=== PATIENT | male | born 1965 | race Caucasian/White ===

== ENCOUNTER 2018-11-04 17:28 | Observation (INO) ==
--- NOTE | 2018-11-04 17:33 | Emergency Department Note ---
Disposition Clinical Impression: Generalized weakness Diarrhea Qualifiers: Diarrhea type: unspecified type Qualified Code(s): R19.7 - Diarrhea, unspecified Disposition: Admitted As Inpatient Condition: Fair Referrals: Latosha Devlin CNP [Primary Care Provider] - Forms: ED Satisfaction Letter Time of Disposition: 18:20 Nausea/Vomiting/Diarrhea HPI - General Chief complaint: ED Dizziness Stated complaint: diarrhea, dizzy, lightheaded Time Seen by Provider: 11/04/18 17:30 Source: patient, family Mode of arrival: private vehicle Limitations: no limitations Nursing Notes Reviewed: Yes Vital Signs Reviewed: Yes - History of Present Illness HPI Narrative: Patient states he has a feeling of generalized weakness without dizziness with trying to stand or move about. He is concerned because she has a history of radial multiple falls over the last month and a half. He fell on August 30 fracturing his left elbow 40 is still in a brace. He is been through [facility] and out of [facility]. He last 4 days has had frequent, copious, watery diarrhea. This is been without blood or mucus. He has not had nausea or vomiting. He has had some decrease in oral intake. He denies fevers or chills. Denies any recent fall but does have the concern of falling. He reports abdominal growling but no pain. He denies any new cough or shortness of breath. He denies chest pain or flank pain. He denies any ill exposures, recent antibiotics or food borne illness concerns. He has had an appendectomy denies other ongoing abdominal problems or procedures. He has tried Imodium without relief. Pt Subjective Complaint: diarrhea Onset (ago): day(s) (4) Description of Diarrhea: water Associated Abdominal Pain: No Severity: none Quality: cramping ("Abdomen growling") Consistency: intermittent Improves with: nothing Worsens with: eating, bowel movement Associated symptoms: Reports: loss of appetite, malaise, weakness. Denies: myalgias, chest pain, cough, diaphoresis, fever/chills, headaches, nausea/vo miting, rash, dysuria, shortness of breath, syncope - Related Data Home Medications Medication Instructions Recorded Confirmed SitaGLIPtin [Januvia] 25 mg PO DAILY 02/04/17 11/04/18 Metformin HCl [Glucophage] 1,000 mg PO BID 09/01/18 11/04/18 Finasteride [Proscar] 5 mg PO DAILY 10/17/18 11/04/18 Glimepiride [Amaryl] 1 mg PO DAILY 10/17/18 11/04/18 Tamsulosin [Flomax] 0.4 mg PO DAILY 10/17/18 11/04/18 Tramadol HCl [Ultram] 50 mg PO TID PRN 10/17/18 11/04/18 Previous Rx's Medication Instructions Recorded Metoprolol [Lopressor] 25 mg PO BID #1 tablet 09/02/18 Allergies Allergy/AdvReac Type Severity Reaction Status Date / Time codeine Allergy Swelling Verified 09/01/18 11:11 of Lip/Tongue/Throat hydrocodone [From Vicodin] Allergy Swelling Verified 09/01/18 11:11 of Lip/Tongue/Throat oxycodone [From Percocet] Allergy Swelling Verified 09/01/18 11:11 of Lip/Tongue/Throat acetaminophen [From Tylenol] AdvReac See Verified 09/01/18 11:11 Comments All systems ED: reviewed and negative except as stated. Past Medical History - Past Medical History Attestation: Yes The following information was validated with the patient. Source: patient, old records reviewed, obtained from family, nursing notes reviewed Medical history: Reports: diabetes, hypertension Surgical history: Reports: appendectomy, orthopedic, other Psychiatric history: Reports: anxiety - Social History Smoking Status: Never smoker Smokeless Tobacco Status: No Alcohol use: Reports: none Drug use: Reports: none Physical Exam - General Limitations: no limitations General appearance: alert, in no apparent distress - Head Head exam: atraumatic, normocephalic, normal inspection - Eye Eye exam: Present: normal appearance, PERRL, EOMI. Absent: scleral icterus, conjunctival injection - ENT ENT exam: normal exam, normal oropharynx, mucous membranes moist - Neck Neck exam: Present: normal inspection, full ROM, trachea midline - Chest Chest inspection: Present: normal inspection, symmetric chest wall rise - Respiratory Respiratory exam: Present: normal lung sounds bilaterally. Absent: respiratory distress, wheezes, prolonged expiratory phase - Cardiovascular Cardiovascular exam: Present: regular rate, normal rhythm, normal heart sounds - Abdominal Exam Abdominal exam: Present: soft, hyperactive bowel sounds. Absent: tenderness, distention, guarding, rebound, rigidity, mass, pulsatile mass, hernia - Extremities Exam Extremities exam: Present: normal inspection, full ROM, normal capillary refill, other (Patient has an articulated brace on the left arm.). Absent: tenderness, pedal edema - Expanded Lower Extremity Exam Neurovascular/Tendon exam: Present: normal capillary refill. Absent: motor deficit, sensory deficit, tendon deficit Gait: not tested/not observed - Neurological Exam Neurological exam: Present: alert, oriented X3 - Psychiatric Psychiatric exam: Present: normal affect, normal mood. Absent: agitated, anxious - Skin Skin exam: Present: warm, dry, intact, pallor. Absent: normal color, diaphoresis Course Course Narrative: Patient was evaluated immediately upon arrival. Given his weakness and persistent diarrhea I advised we will start some IV fluids and check some baseline lab work. If he passes stool we will need to check it for stool pathogens and C. difficile. He understands he will likely need observation for continued hydration given his weakness and risk of fall. 1820: Care has been discussed with Dr. Ram. Verbal orders have been obtained for his observation and continued hydration. Vital Signs Temperature 98 F 11/04/18 17:35 Pulse Rate 80 11/04/18 17:35 Respiratory Rate 16 11/04/18 17:35 Blood Pressure 101/78 11/04/18 17:35 O2 Sat by Pulse Oximetry 97 11/04/18 17:35 Temperature 98 F 11/04/18 17:35 Pulse Rate 80 11/04/18 17:35 Respiratory Rate 16 11/04/18 17:35 Blood Pressure 101/78 11/04/18 17:35 O2 Sat by Pulse Oximetry 97 11/04/18 17:35 Oxygen Delivery Oxygen Delivery Room Air Nausea/Vomiting/Diarrhea - Differential Diagnosis Likely: traveler's diarrhea, food poisoning, gastroenteritis, clostridium difficile infection - Lab Data Lab results reviewed: Yes I reviewed the patient's lab results. Result diagrams: 11/04/18 17:43 11/04/18 17:43 Lab Results 11/04/18 11/04/18 Range/Units 17:43 17:43 WBC 11.4 H (4.3-11.1) K/mcL RBC 4.94 (4.19-5.50) M/mcL Hgb 12.7 L (12.9-16.9) g/dL Hct 39.7 (37.5-50.1) % MCV 80.4 L (83.0-100.0) fL MCH 25.7 L (28.0-33.3) pg MCHC 32.0 (31.6-35.5) g/dL RDW 15.3 H (11.5-14.5) % Plt Count 174 (140-400) K/mcL MPV 9.8 (9.4-12.4) fL Immature Gran % 0.3 (0-4) % Seg Neutrophils % 70.6 % Lymphocytes % 16.1 % Monocytes % 8.2 % Eosinophils % 4.1 % Basophils % 0.7 % Neutrophils # 8.1 (1.6-8.9) K/mcL Lymphocytes # 1.8 (0.6-4.6) K/mcL Monocytes # 0.9 (0.0-1.3) K/mcL Eosinophils # 0.5 (0.0-0.6) K/mcL Basophils # 0.1 (0.0-0.2) K/mcL Sodium 138 (136-145) mEq/L Potassium 4.1 (3.5-5.1) mEq/L Chloride 107 (98-107) mEq/L Carbon Dioxide 23 (23-29) mEq/L BUN 20 (6-20) mg/dL Creatinine 1.34 H (0.70-1.30) mg/dL Est GFR ( Amer) > 60 (> 60) Est GFR (Non-Af Amer) 56 L (> 60) BUN/Creatinine Ratio 15 (6-26) Glucose 90 (70-105) mg/dL Calculated Osmolality 288 (280-300) Calcium 8.9 (8.6-10.3) mg/dL Total Bilirubin 1.2 H (0.3-1.0) mg/dL Direct Bilirubin 0.2 (0.0-0.2) mg/dL Indirect Bilirubin 1.0 (0.0-1.2) mg/dL AST 15 (13-39) Units/L ALT 15 (7-52) Units/L Alkaline Phosphatase 108 H (34-104) Units/L Serum Total Protein 7.2 (6.4-8.9) g/dL Albumin 3.7 (3.5-5.7) g/dL Globulin 3.5 (2.4-3.5) g/dL Albumin/Globulin Ratio 1.1 (1.1-2.2) Amylase 43 (29-103) Units/L Lipase 44 (11-82) Units/L
[2018-11-04] MEDS ORDERED: 0.9 % Sodium Chloride 1,000 ML IVC ONE (17:34)
[2018-11-04 17:49] LABS: Basophils # 0.1 K/mcL (0.0-0.2); Basophils % 0.7 %; Eosinophils # 0.5 K/mcL (0.0-0.6); Eosinophils % 4.1 %; Hematocrit 39.7 % (37.5-50.1); Hemoglobin 12.7 g/dL (12.9-16.9); Immature Granulocytes % 0.3 % (0-4); Lymphocytes # 1.8 K/mcL (0.6-4.6); Lymphocytes % 16.1 %; Mean Corpuscular Hemoglobin 25.7 pg (28.0-33.3); Mean Corpuscular Volume 80.4 fL (83.0-100.0); Mean Platelet Volume 9.8 fL (9.4-12.4); Monocytes # 0.9 K/mcL (0.0-1.3); Monocytes % 8.2 %; Neutrophils # 8.1 K/mcL (1.6-8.9); Platelet Count 174 K/mcL (140-400); Red Blood Count 4.94 M/mcL (4.19-5.50); Red Cell Distribution Width 15.3 % (11.5-14.5); Segmented Neutrophils % 70.6 %; White Blood Count 11.4 K/mcL (4.3-11.1)
[2018-11-04 18:05] LABS: Alanine Aminotransferase 15 Units/L (7-52); Albumin 3.7 g/dL (3.5-5.7); Albumin/Globulin Ratio 1.1 (1.1-2.2); Alkaline Phosphatase 108 Units/L (34-104); Amylase 43 Units/L (29-103); Aspartate Amino Transferase 15 Units/L (13-39); BUN/Creatinine Ratio 15 (6-26); Bilirubin,Direct 0.2 mg/dL (0.0-0.2); Bilirubin,Total 1.2 mg/dL (0.3-1.0); Blood Urea Nitrogen 20 mg/dL (6-20); Calcium 8.9 mg/dL (8.6-10.3); Carbon Dioxide 23 mEq/L (23-29); Chloride 107 mEq/L (98-107); Globulin 3.5 g/dL (2.4-3.5); Glucose 90 mg/dL (70-105); Lipase 44 Units/L (11-82); Osmolality,Calculated 288 (280-300); Potassium 4.1 mEq/L (3.5-5.1); Sodium 138 mEq/L (136-145); Total Protein 7.2 g/dL (6.4-8.9); eGFR For African Americans > 60 (> 60); eGFR For Non-African Americans 56 (> 60)
[2018-11-04] MEDS ORDERED: traMADol 50 MG TABLET PO PRN (20:54)
[2018-11-04] MEDS ORDERED: MOM Conc 10 ML UD.LIQ PO PRN (20:54)
[2018-11-04] MEDS ORDERED: *HR* Dextrose 50 % in Water (Syg) 50 ML SYRINGE IVP PRN (20:54)
[2018-11-04] MEDS ORDERED: Ondansetron ODT 4 MG TAB.RAPDIS SL PRN (20:54)
[2018-11-04] MEDS ORDERED: Naloxone 0.4 MG/ML INJ IVP PRN (20:54)
[2018-11-04] MEDS ORDERED: D5% in Water 1,000 ML IVC PRN (20:54)
[2018-11-04] MEDS ORDERED: Dextrose Gel 15 GM/37.5 ML TUBE PO PRN ×2 (20:54)
[2018-11-04] MEDS ORDERED: Mag Hydrox/Al Hydrox/Simeth 30 ML UDC PO PRN (20:54)
[2018-11-04] MEDS: 0.9 % Sodium Chloride 1,000 ML IVC SCH (21:47)
[2018-11-04] MEDS: *HR* Metformin 500 MG TABLET PO SCH (21:50)
[2018-11-05] MEDS: 0.9 % Sodium Chloride 1,000 ML IVC SCH (05:43)
[2018-11-05] MEDS: Insulin LISPRO 300 UNITS/3 ML VIAL SQ SCH ×3 (07:35→16:26)
[2018-11-05] MEDS: *HR* Metformin 500 MG TABLET PO SCH ×2 (07:37→16:30)
[2018-11-05] MEDS: Finasteride 5 MG TABLET PO SCH (07:38)
[2018-11-05] MEDS: *HR* SitaGLIPtin 25 MG TABLET PO SCH (07:38)
[2018-11-05] MEDS ORDERED: *HR* Glimepiride 2 MG TABLET PO SCH (08:00)
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
[2018-11-05 12:42] LABS: Adenovirus F 40/41 PCR Not detected (Not detect); Astrovirus PCR Not detected (Not detect); C.difficile Toxin A/B Gene PCR Not detected (Not detect); Campylobacter by PCR Not detected (Not detect); Cryptosporidium by PCR Not detected (Not detect); Cyclospora cayetanensis PCR Not detected (Not detect); E. coli O157 by PCR Not detected (Not detect); Entamoeba histolytica PCR Not detected (Not detect); Enteroaggregative E.coli(EAEC) Not detected (Not detect); Enteropathogenic E.coli(EPEC) Not detected (Not detect); Enterotoxigenic E.coli (ETEC) Not detected (Not detect); Giardia lamblia PCR Not detected (Not detect); Norovirus GI/GII PCR Not detected (Not detect); Plesiomonas shigelloides PCR Not detected (Not detect); Salmonella PCR Not detected (Not detect); Shig/EnteroinvasiveE coli EIEC Not detected (Not detect); Shigalike tox-prod E coli STEC Not detected (Not detect); Vibrio PCR Not detected (Not detect); Vibrio cholerae PCR Not detected (Not detect); Yersinia enterocolitica PCR Not detected (Not detect)
[2018-11-05 12:43] LABS: Rotavirus A PCR Not detected (Not detect); Sapovirus PCR Not detected (Not detect)
[2018-11-05] MEDS: 0.45 % Sodium Chloride w/KCl 20 MEQ/1,000 ML MLS IVC SCH (13:51)
[2018-11-06] MEDS: 0.45 % Sodium Chloride w/KCl 20 MEQ/1,000 ML MLS IVC SCH ×2 (02:32→14:10)
[2018-11-06] MEDS: *HR* Enoxaparin 40 MG/0.4 ML SYRINGE SQ SCH (04:49)
[2018-11-06 07:04] LABS: Basophils # 0.1 K/mcL (0.0-0.2); Basophils % 0.8 %; Eosinophils # 0.3 K/mcL (0.0-0.6); Eosinophils % 4.7 %; Hematocrit 36.2 % (37.5-50.1); Hemoglobin 11.6 g/dL (12.9-16.9); Immature Granulocytes % 0.4 % (0-4); Lymphocytes # 1.9 K/mcL (0.6-4.6); Lymphocytes % 25.7 %; Mean Corpuscular Hemoglobin 25.8 pg (28.0-33.3); Mean Corpuscular Volume 80.6 fL (83.0-100.0); Mean Platelet Volume 10.2 fL (9.4-12.4); Monocytes # 0.7 K/mcL (0.0-1.3); Monocytes % 9.2 %; Neutrophils # 4.3 K/mcL (1.6-8.9); Platelet Count 136 K/mcL (140-400); Red Blood Count 4.49 M/mcL (4.19-5.50); Red Cell Distribution Width 14.9 % (11.5-14.5); Segmented Neutrophils % 59.2 %; White Blood Count 7.3 K/mcL (4.3-11.1)
[2018-11-06 07:41] LABS: BUN/Creatinine Ratio 14 (6-26); Blood Urea Nitrogen 14 mg/dL (6-20); Calcium 8.6 mg/dL (8.6-10.3); Carbon Dioxide 23 mEq/L (23-29); Chloride 110 mEq/L (98-107); Glucose 71 mg/dL (70-105); Magnesium 1.6 mg/dL (1.6-2.6); Osmolality,Calculated 289 (280-300); Potassium 3.6 mEq/L (3.5-5.1); Sodium 140 mEq/L (136-145); eGFR For African Americans > 60 (> 60); eGFR For Non-African Americans > 60 (> 60)
[2018-11-06 08:49] LABS: % Iron Saturation 9 % (20-55); Iron 34 mcg/dL (65-175); Transferrin 261 mg/dL (203-362)
[2018-11-06 09:07] LABS: Ferritin 45 ng/mL (20-250)
[2018-11-06 09:08] LABS: Estimated Average Glucose 114 mg/dl
[2018-11-06 09:19] LABS: Folate > 22.3 ng/mL (3.0-16.0); Vitamin B12 373 pg/mL (250-1100)
[2018-11-06] MEDS: Finasteride 5 MG TABLET PO SCH (10:04)
[2018-11-06] MEDS: Insulin LISPRO 300 UNITS/3 ML VIAL SQ SCH ×3 (10:05→16:16)
[2018-11-06] MEDS: *HR* SitaGLIPtin 25 MG TABLET PO SCH (10:05)
--- NOTE | 2018-11-06 15:47 | Internal Med Progress Note ---
Date of Encounter: 11/06/18 Time of Encounter: 15:35 - Assessment and plan (1) Diarrhea Current Visit: Yes Status: Acute Assessment and plan: November 06. Awaiting stool study results. Continue IV fluids and symptomatically treatment. Qualifiers: Diarrhea type: unspecified type Qualified Code(s): R19.7 - Diarrhea, unspecified (2) Multiple falls Current Visit: Yes Status: Acute Assessment and plan: November 06. PT and OT intervention has been started. Orthostatic vital signs not recorded. (3) Microcytic anemia Current Visit: Yes Status: Acute Assessment and plan: November 06. Anemia testing showed iron 34, transferrin saturation 9%, transferrin 261, ferritin 45, B12 373, and folate > 22.3. Hemoglobin has decreased to 11.6. Start ferrous sulfate with ascorbic acid in a.m. (4) Acute renal insufficiency Current Visit: Yes Status: Acute Assessment and plan: November 06. Resolved. BUN and creatinine are 14 and 0.97 respectively with estimated GFR> 60. (5) Osteomyelitis Current Visit: No Status: Acute Assessment and plan: November 06. MRI showed suspicion for osteomyelitis in the distal phalanx of the right hallux with superficial fluid collection possibly representing a small abscess. This was reported to Dr. Machado at [facility] podiatry. He requested foot x- ray be done for further evaluation. Qualifiers: Osteomyelitis type: unspecified type Osteomyelitis location: foot Laterality: right Qualified Code(s): M86.9 - Osteomyelitis, unspecified (6) Hypertension Current Visit: No Status: Chronic Assessment and plan: November 06. Continue Lopressor. Qualifiers: Hypertension type: essential hypertension Qualified Code(s): I10 - Essential (primary) hypertension (7) Diabetes Current Visit: No Status: Chronic Assessment and plan: November 06. Hemoglobin A1c 5.6%. Remain off Amaryl. Discontinue Januvia and continue monitoring Accu-Cheks. 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 He has no new complaints. He reports he still has diarrhea. - Constitutional Vitals: Temp Pulse Resp BP Pulse Ox 98.3 F 83 17 147/90 97 11/06/18 14:38 11/06/18 14:38 11/06/18 14:38 11/06/18 14:38 11/06/18 14:38 Exam: He is resting comfortably in bed and appears in no acute distress. His affect is bright and cheerful. Extremities show no edema. Reviewed his medications and lab results. Internal Medicine: Result - Labs CBC & Chem 7: 11/06/18 06:14 11/06/18 06:14 Labs: Short CBC 11/06/18 Range/Units 06:14 WBC 7.3 (4.3-11.1) K/mcL Hgb 11.6 L (12.9-16.9) g/dL Hct 36.2 L (37.5-50.1) % Plt Count 136 L (140-400) K/mcL Neutrophils # 4.3 (1.6-8.9) K/mcL BMP 11/06/18 06:14 Sodium 140 Potassium 3.6 Chloride 110 H Carbon Dioxide 23 BUN 14 Creatinine 0.97 Glucose 71 Calcium 8.6 - Impressions Impressions Foot X-Ray 11/06/18 15:00 IMPRESSION: Soft tissue swelling about the great toe and 1st MTP joint. No bony destruction. D/ / 11/06/2018 15:29:36 Nik Leach MD / segundo Interpreting Provider: Nik Leach MD Consult Discharge Plan - Plan Referrals: Latosha Devlin CNP [Primary Care Provider] - 1 week
[2018-11-06] MEDS: *HR* Metformin 500 MG TABLET PO SCH (17:10)
[2018-11-07] MEDS: 0.45 % Sodium Chloride w/KCl 20 MEQ/1,000 ML MLS IVC SCH ×2 (02:03→15:59)
[2018-11-07 05:43] LABS: Basophils # 0.1 K/mcL (0.0-0.2); Basophils % 1.1 %; Eosinophils # 0.3 K/mcL (0.0-0.6); Eosinophils % 4.7 %; Hematocrit 35.2 % (37.5-50.1); Hemoglobin 11.3 g/dL (12.9-16.9); Immature Granulocytes % 0.3 % (0-4); Lymphocytes # 2.1 K/mcL (0.6-4.6); Lymphocytes % 29.6 %; Mean Corpuscular HGB Conc 32.1 g/dL (31.6-35.5); Mean Corpuscular Hemoglobin 25.7 pg (28.0-33.3); Mean Corpuscular Volume 80.2 fL (83.0-100.0); Mean Platelet Volume 10.8 fL (9.4-12.4); Monocytes # 0.7 K/mcL (0.0-1.3); Monocytes % 9.4 %; Neutrophils # 3.9 K/mcL (1.6-8.9); Platelet Count 132 K/mcL (140-400); Red Blood Count 4.39 M/mcL (4.19-5.50); Red Cell Distribution Width 14.9 % (11.5-14.5); Segmented Neutrophils % 54.9 %; White Blood Count 7.2 K/mcL (4.3-11.1)
[2018-11-07] MEDS: *HR* Enoxaparin 40 MG/0.4 ML SYRINGE SQ SCH (05:46)
[2018-11-07] MEDS ORDERED: Ascorbic Acid 500 MG TABLET PO SCH (06:30)
[2018-11-07 06:34] LABS: BUN/Creatinine Ratio 13 (6-26); Blood Urea Nitrogen 13 mg/dL (6-20); Calcium 8.8 mg/dL (8.6-10.3); Carbon Dioxide 24 mEq/L (23-29); Chloride 110 mEq/L (98-107); Glucose 89 mg/dL (70-105); Osmolality,Calculated 294 (280-300); Potassium 3.8 mEq/L (3.5-5.1); Sodium 142 mEq/L (136-145); eGFR For African Americans > 60 (> 60); eGFR For Non-African Americans > 60 (> 60)
[2018-11-07] MEDS: Insulin LISPRO 300 UNITS/3 ML VIAL SQ SCH ×3 (07:27→15:57)
[2018-11-07] MEDS: Finasteride 5 MG TABLET PO SCH (08:30)
[2018-11-07 12:28] VITALS: BP 144/90
--- NOTE | 2018-11-07 14:20 | Internal Med Progress Note ---
Date of Encounter: 11/07/18 Time of Encounter: 14:12 - Assessment and plan (1) Diarrhea Current Visit: Yes Status: Acute Assessment and plan: November 06. Awaiting stool study results. Continue IV fluids and symptomatically treatment. November 07. GI panel negative. Oral intake adequate. Discontinue IV fluids. Qualifiers: Diarrhea type: unspecified type Qualified Code(s): R19.7 - Diarrhea, unspecified (2) Multiple falls Current Visit: Yes Status: Acute Assessment and plan: November 06. PT and OT intervention has been started. Orthostatic vital signs not recorded. (3) Microcytic anemia Current Visit: Yes Status: Acute Assessment and plan: November 06. Anemia testing showed iron 34, transferrin saturation 9%, transferrin 261, ferritin 45, B12 373, and folate > 22.3. Hemoglobin has decreased to 11.6. Start ferrous sulfate with ascorbic acid in a.m. November 07. Hemoglobin minimally decreased to 11.3. Continue monitor. (4) Acute renal insufficiency Current Visit: Yes Status: Acute Assessment and plan: November 06. Resolved. BUN and creatinine are 14 and 0.97 respectively with estimated GFR> 60. (5) Osteomyelitis Current Visit: No Status: Acute Assessment and plan: November 06. MRI showed suspicion for osteomyelitis in the distal phalanx of the right hallux with superficial fluid collection possibly representing a small abscess. This was reported to Dr. Machado at [facility] [place] podiatry. He requested foot x- ray be done for further evaluation. November 07. Foot x-ray report noted. Nursing has contacted Dr. Machado who stated he will see the patient in 3-4 days and aspirate the first MTP joint. He said he does not feel IV antibiotics were necessary at this time but oral antibiotics would be reasonable. ESR and CRP will be done in a.m. per his recommendation. Qualifiers: Osteomyelitis type: unspecified type Osteomyelitis location: foot Laterality: right Qualified Code(s): M86.9 - Osteomyelitis, unspecified (6) Hypertension Current Visit: No Status: Chronic Assessment and plan: November 06. Continue Lopressor. Qualifiers: Hypertension type: essential hypertension Qualified Code(s): I10 - Essential (primary) hypertension (7) Diabetes Current Visit: No Status: Chronic Assessment and plan: November 06. Hemoglobin A1c 5.6%. Remain off Amaryl. Discontinue Januvia and continue monitoring Accu-Cheks. November 07. Blood sugars stable. Continue present Rx. Qualifiers: Diabetes mellitus type: type 2 Diabetes mellitus fdc insulin use: without fdc use Diabetes mellitus complication status: with skin complications Diabetes mellitus complication detail: with foot ulcer Qualified Code(s): E11.621 - Type 2 diabetes mellitus with foot ulcer; L97.509 - Non-pressure chronic ulcer of other part of unspecified foot with unspecified severity (8) Humeral fracture Current Visit: No Status: Acute Assessment and plan: November 07. Therapy feels he would benefit from hemiwalker or walker rather than use of quad cane. Qualifiers: Encounter type: subsequent encounter Humerus Location: supracondylar fracture without intercondylar fracture Fracture type: closed Fracture morphology: comminuted Fracture alignment: displaced Laterality: left Fracture healing: with routine healing Qualified Code(s): S42.422D - Displaced comminuted supracondylar fracture without intercondylar fracture of left humerus, subsequent encounter for fracture with routine healing - Subjective Interval history: November 06. He has no new complaints. He reports he still has diarrhea. November 07. He has no new complaints and states diarrhea has resolved. - Constitutional Vitals: Temp Pulse Resp BP Pulse Ox 98.4 F 83 20 144/90 96 11/07/18 12:27 11/07/18 12:27 11/07/18 12:27 11/07/18 12:27 11/07/18 12:27 Exam: He is resting comfortably in bed and appears in no acute distress. His affect is overall cheerful. I reviewed his medications, lab results, and x-ray report. Internal Medicine: Result - Labs CBC & Chem 7: 11/07/18 04:59 11/07/18 04:59 Labs: Short CBC 11/07/18 Range/Units 04:59 WBC 7.2 (4.3-11.1) K/mcL Hgb 11.3 L (12.9-16.9) g/dL Hct 35.2 L (37.5-50.1) % Plt Count 132 L (140-400) K/mcL Neutrophils # 3.9 (1.6-8.9) K/mcL BMP 11/07/18 04:59 Sodium 142 Potassium 3.8 Chloride 110 H Carbon Dioxide 24 BUN 13 Creatinine 1.02 Glucose 89 Calcium 8.8 - Impressions Impressions Foot X-Ray 11/06/18 15:00 IMPRESSION: Soft tissue swelling about the great toe and 1st MTP joint. No bony destruction. D/ / 11/06/2018 15:29:36 Nik Leach MD / segundo Interpreting Provider: Nik Leach MD Consult Discharge Plan - Plan Referrals: Latosha Devlin CNP [Primary Care Provider] - 1 week
[2018-11-07] MEDS: *HR* Metformin 500 MG TABLET PO SCH (17:10)
--- NOTE | 2018-11-07 17:49 | Discharge Summary ---
Date of Encounter: 11/07/18 Time of Encounter: 17:45 - Discharge Diagnosis (1) Diarrhea Priority: Primary Status: Resolved Qualifiers: Diarrhea type: unspecified type Qualified Code(s): R19.7 - Diarrhea, unspecified (2) Multiple falls Priority: Secondary Status: Acute (3) Microcytic anemia Priority: Secondary Status: Acute (4) Acute renal insufficiency Priority: Secondary Status: Resolved (5) Osteomyelitis Priority: Secondary Status: Chronic Qualifiers: Osteomyelitis type: unspecified type Osteomyelitis location: foot Laterality: right Qualified Code(s): M86.9 - Osteomyelitis, unspecified (6) Hypertension Priority: Secondary Status: Chronic Qualifiers: Hypertension type: essential hypertension Qualified Code(s): I10 - Essential (primary) hypertension (7) Diabetes Priority: Secondary Status: Chronic Qualifiers: Diabetes mellitus type: type 2 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 [facility] use Diabetes mellitus complication status: with skin complications Diabetes mellitus complication detail: with foot ulcer Qualified Code(s): E11.621 - Type 2 diabetes mellitus with foot ulcer; L97.509 - Non-pressure chronic ulcer of other part of unspecified foot with unspecified severity (8) Humeral fracture Priority: Secondary Status: Acute Qualifiers: Encounter type: subsequent encounter Humerus Location: supracondylar fracture without intercondylar fracture Fracture type: closed Fracture morphology: comminuted Fracture alignment: displaced Laterality: left Fracture healing: with routine healing Qualified Code(s): S42.422D - Displaced comminuted supracondylar fracture without intercondylar fracture of left humerus, subsequent encounter for fracture with routine healing Hospital course: Mr. Salomon is a 53 year old male who came to emergency room stating he had 5-6 day history of nonbloody diarrhea at home. He denies nausea vomiting fevers chills or abdominal pain. He reports his stools were "brown water". He had pr ogressive weakness with orthostatic symptoms upon arising. He reports he has had 4-5 falls at home since being discharged from a local SNF approximately 6 weeks ago. He was evaluated in emergency room and was found to have microcytic anemia, acute renal insufficiency, and slight leukocytosis. He was admitted to [facility] for ongoing care needs. Initial orders were written by the emergency room physician. I saw him on November 05 and performed the history and physical. He was given IV fluids. Stool GI panel returned negative. Etiology of diarrhea was not determined with certainty. He reported his diarrhea had resolved by day of discharge to swing bed. Physical therapy and occupational therapy evaluations with ongoing intervention were ordered. Therapy will be continued in swing bed. Anemia testing showed iron 34, transferrin saturation 9%, transferrin 261, ferritin 45, B12 373, and folate > 22.3. He was started on ferrous sulfate with ascorbic acid. BUN and creatinine improved to 13 and 1.02 respectively by day of discharge with estimated GFR > 60. MRI showed suspicion for osteomyelitis in the distal phalanx of the right hallux with superficial fluid collection possibly representing a small abscess. This was reported to Dr. Machado at [facility] podiatry. He requested foot x-ray be done for further evaluation. Dr. Machado reviewed the MRI and x-ray and stated he will see the patient in 3-4 days and aspirate the first MTP joint. He said he does not feel IV antibiotics were necessary at this time but oral antibiotics would be reasonable. ESR and CRP will be done in a.m. per his recommendation. Patient will be started on oral Septra DS twice a day with lactobacillus. Hemoglobin A1c returned satisfactory 5.6%. Amaryl and Januvia were discontinued. He remained on metformin 1000 mg daily with satisfactory blood sugars. He felt he needed additional therapy prior to returning to independent living at home. He was discharged to swing bed November 07 for ongoing care needs. - Time Spent with Patient Total time spent providing and/or coordinating discharge services: - Discharge Medications Prescriptions: New metFORMIN [Glucophage] 1,000 mg PO QPM tablet Insulin LISPRO [HumaLOG] 0 units SQ TIDAC vial Ferrous Sulfate 325 mg PO 0630 tablet Enoxaparin [Lovenox] 40 mg SQ 0600 syringe Ascorbic Acid [Vitamin C] 500 mg PO 0630 tablet Dextrose 50 % in Water (Syg) [Dextrose 50% (Syg)] 25 ml IVP AD PRN syringe PRN Reason: Hypoglycemia Dextrose Gel [Gluctose] 30 gm PO ONCE PRN tube PRN Reason: Hypoglycemia Dextrose Gel [Gluctose] 15 gm PO ONCE PRN tube PRN Reason: Hypoglycemia Sulfamethoxazole/Trimeth DS [Bactrim DS] 1 each PO BID 4 Days tablet Lactobacillus [Culturelle] 1 each PO BID 4 Days cap.sprink Continued SitaGLIPtin [Januvia] 25 mg PO DAILY Metoprolol [Lopressor] 25 mg PO BID #1 tablet Finasteride [Proscar] 5 mg PO DAILY Tramadol HCl [Ultram] 50 mg PO TID PRN PRN Reason: Pain Tamsulosin [Flomax] 0.4 mg PO DAILY Discontinued Metformin HCl [Glucophage] 1,000 mg PO BID Glimepiride [Amaryl] 1 mg PO DAILY Home Medications: SitaGLIPtin [Januvia] 25 mg PO DAILY 02/04/17 [History] Metoprolol [Lopressor] 25 mg PO BID #1 tablet 09/02/18 [Rx] Finasteride [Proscar] 5 mg PO DAILY 10/17/18 [History] Tamsulosin [Flomax] 0.4 mg PO DAILY 10/17/18 [History] Tramadol HCl [Ultram] 50 mg PO TID PRN 10/17/18 [History] Ascorbic Acid [Vitamin C] 500 mg PO 0630 tablet 11/07/18 [Rx] Dextrose 50 % in Water (Syg) [Dextrose 50% (Syg)] 25 ml IVP AD PRN syringe 11/07/18 [Rx] Dextrose Gel [Gluctose] 15 gm PO ONCE PRN tube 11/07/18 [Rx] Dextrose Gel [Gluctose] 30 gm PO ONCE PRN tube 11/07/18 [Rx] Enoxaparin [Lovenox] 40 mg SQ 0600 syringe 11/07/18 [Rx] Ferrous Sulfate 325 mg PO 0630 tablet 11/07/18 [Rx] Insulin LISPRO [HumaLOG] 0 units SQ TIDAC vial 11/07/18 [Rx] Lactobacillus [Culturelle] 1 each PO BID 4 Days cap.sprink 11/07/18 [Rx] Sulfamethoxazole/Trimeth DS [Bactrim DS] 1 each PO BID 4 Days tablet 11/07/18 [Rx] metFORMIN [Glucophage] 1,000 mg PO QPM tablet 11/07/18 [Rx] Allergies/Adverse Reactions: Allergy/AdvReac Type Severity Reaction Status Date / Time codeine Allergy Swelling Verified 09/01/18 11:11 of Lip/Tongue/Throat hydrocodone [From Vicodin] Allergy Swelling Verified 09/01/18 11:11 of Lip/Tongue/Throat oxycodone [From Percocet] Allergy Swelling Verified 09/01/18 11:11 of Lip/Tongue/Throat acetaminophen [From Tylenol] AdvReac See Verified 09/01/18 11:11 Comments Date of admission: 11/04/18 18:39 Primary care physician: Latosha Devlin Consults: 11/04/18 20:52 Consult to Nutrition [CONS] Routine Comment: Consulting Provider: NUTRITION Reason for Dietary Consult: MST Score 11/05/18 11:20 Consult to Occupational Therapy [CONS] Routine Comment: Evaluate, develop and implement POC Reason for Consult: Weakness Does patient have active BEDREST order?: No Is patient medically & hemodynamically stable?: Yes Patient assessed for mobility or mobilized this visit?: Yes Consult to Physical Therapy [CONS] Routine Comment: Evaluate, develop and implement POC Reason for Consult: Weakness Does patient have active BEDREST order?: No Is patient medically & hemodynamically stable?: Yes Patient assessed for mobility or mobilized this visit?: Yes - Constitutional Vitals: Temp Pulse Resp BP Pulse Ox 98.4 F 83 20 144/90 96 11/07/18 12:27 11/07/18 12:27 11/07/18 12:27 11/07/18 12:27 11/07/18 12:27 - Patient Status Disposition: Transfer Hospital Swing Bed Condition: Fair - Discharge Instructions - Diet and Activity Activity: as per physical therapy Diet: diabetic diet
== END 2018-11-07 18:10 | disposition other institution (70) ==
LOC: EMEROOPIK 17:28 → INPPIK 17:28
PROVIDERS: ADMIT Internal Medicine; ATTEND Internal Medicine

== ENCOUNTER 2018-11-07 18:13 | Inpatient (IN) ==
[2018-11-07] MEDS ORDERED: *HR* Dextrose 50 % in Water (Syg) 50 ML SYRINGE IVP PRN ×2 (18:38→19:01)
[2018-11-07] MEDS ORDERED: Dextrose Gel 15 GM/37.5 ML TUBE PO PRN ×4 (18:38→19:01)
[2018-11-07] MEDS ORDERED: D5% in Water 1,000 ML IVC PRN (19:01)
[2018-11-07] MEDS: Sulfamethoxazole/Trimeth DS 1 EACH TABLET PO SCH (21:15)
[2018-11-07] MEDS: Lactobacillus 1 EACH CAP.SPRINK PO SCH (21:15)
[2018-11-08] MEDS: *HR* Enoxaparin 40 MG/0.4 ML SYRINGE SQ SCH (06:31)
[2018-11-08] MEDS: Ascorbic Acid 500 MG TABLET PO SCH (06:31)
[2018-11-08 08:03] LABS: Basophils # 0.1 K/mcL (0.0-0.2); Basophils % 0.8 %; Eosinophils # 0.3 K/mcL (0.0-0.6); Eosinophils % 3.9 %; Hematocrit 37.8 % (37.5-50.1); Hemoglobin 12.2 g/dL (12.9-16.9); Immature Granulocytes % 0.5 % (0-4); Lymphocytes # 2.2 K/mcL (0.6-4.6); Lymphocytes % 26.4 %; Mean Corpuscular HGB Conc 32.3 g/dL (31.6-35.5); Mean Corpuscular Hemoglobin 25.8 pg (28.0-33.3); Mean Corpuscular Volume 79.9 fL (83.0-100.0); Mean Platelet Volume 10.5 fL (9.4-12.4); Monocytes # 0.7 K/mcL (0.0-1.3); Monocytes % 8.4 %; Neutrophils # 5.1 K/mcL (1.6-8.9); Platelet Count 153 K/mcL (140-400); Red Blood Count 4.73 M/mcL (4.19-5.50); Red Cell Distribution Width 14.9 % (11.5-14.5); White Blood Count 8.5 K/mcL (4.3-11.1)
[2018-11-08 08:10] LABS: INR 1.2; Prothrombin Time 13.2 Seconds (9.4-12.1)
[2018-11-08 08:13] LABS: Activated Partial Thrombo Time 33.5 Seconds (26.0-36.0)
[2018-11-08 08:20] LABS: BUN/Creatinine Ratio 14 (6-26); Blood Urea Nitrogen 14 mg/dL (6-20); Calcium 8.9 mg/dL (8.6-10.3); Carbon Dioxide 26 mEq/L (23-29); Chloride 107 mEq/L (98-107); Glucose 85 mg/dL (70-105); Osmolality,Calculated 292 (280-300); Potassium 3.8 mEq/L (3.5-5.1); Sodium 141 mEq/L (136-145); eGFR For African Americans > 60 (> 60); eGFR For Non-African Americans > 60 (> 60)
[2018-11-08] MEDS: Lactobacillus 1 EACH CAP.SPRINK PO SCH ×2 (08:26→21:15)
[2018-11-08] MEDS: Sulfamethoxazole/Trimeth DS 1 EACH TABLET PO SCH ×2 (08:26→21:15)
[2018-11-08] MEDS: Finasteride 5 MG TABLET PO SCH (08:26)
[2018-11-08] MEDS ORDERED: *HR* SitaGLIPtin 25 MG TABLET PO SCH (09:00)
[2018-11-08] MEDS: *HR* Metformin 500 MG TABLET PO SCH (17:23)
--- NOTE | 2018-11-08 18:43 | Internal Med Progress Note ---
Date of Encounter: 11/08/18 Time of Encounter: 18:35 - Assessment and plan (1) Multiple falls Current Visit: No Status: Acute Assessment and plan: November 08. Continue PT/OT intervention. (2) Osteomyelitis Current Visit: No Status: Chronic Assessment and plan: November 08. He has been started on Septra DS for possible osteomyelitis of the right foot. He will follow with podiatry in 2-3 days for further evaluation and development of plan of care. Qualifiers: Osteomyelitis type: unspecified type Osteomyelitis location: foot Laterality: right Qualified Code(s): M86.9 - Osteomyelitis, unspecified (3) Hypertension Current Visit: No Status: Chronic Assessment and plan: November 08. Continue Lopressor. Qualifiers: Hypertension type: essential hypertension Qualified Code(s): I10 - Essential (primary) hypertension (4) Humeral fracture Current Visit: No Status: Acute Assessment and plan: November 08. Continue PT/OT intervention. Follow-up with orthopedist as directed. Qualifiers: Encounter type: subsequent encounter Humerus Location: distal Fracture type: closed Fracture morphology: unspecified fracture morphology Laterality: left Fracture healing: with delayed healing Qualified Code(s): S42.402G - Unspecified fracture of lower end of left humerus, subsequent encounter for fracture with delayed healing (5) Diabetes Current Visit: No Status: Chronic Assessment and plan: November 08. Hemoglobin A1c 5.6%. Remain off Amaryl and Januvia. Metformin will also be held due to complaints of nausea. 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 He was hospitalized in [facility] acute-care November 04- after presenting with 5-6 day history of diarrhea. Diarrhea resolved during acute care stay. Etiology was not determined. He had PT/OT evaluations with ongoing intervention. It was felt he would benefit from swing bed stay for continuing therapy prior to returning to independent living. He complains of some nausea at present time but has no other complaints. - Constitutional Vitals: Temp Pulse Resp BP Pulse Ox 98.2 F 85 18 120/72 94 11/08/18 18:00 11/08/18 18:00 11/08/18 18:00 11/08/18 18:00 11/08/18 18:00 Exam: He is resting quietly in bed and appears in no acute distress. His affect is overall cheerful. I reviewed his medications, lab results, and discharge summary. Internal Medicine: Result - Labs CBC & Chem 7: 11/08/18 07:11 11/08/18 07:11 Labs: Short CBC 11/08/18 Range/Units 07:11 WBC 8.5 (4.3-11.1) K/mcL Hgb 12.2 L (12.9-16.9) g/dL Hct 37.8 (37.5-50.1) % Plt Count 153 (140-400) K/mcL Neutrophils # 5.1 (1.6-8.9) K/mcL BMP 11/08/18 07:11 Sodium 141 Potassium 3.8 Chloride 107 Carbon Dioxide 26 BUN 14 Creatinine 1.01 Glucose 85 Calcium 8.9 - ABG Interpretation ABG results: PT/INR, D-dimer PT 13.2 Seconds (9.4-12.1) H 11/08/18 07:11 Consult Discharge Plan - Plan Referrals: Latosha Devlin, [employer] [Primary Care Provider] - 1 week
[2018-11-09] MEDS: Ascorbic Acid 500 MG TABLET PO SCH (06:52)
[2018-11-09] MEDS: *HR* Enoxaparin 40 MG/0.4 ML SYRINGE SQ SCH ×2 (06:55→10:03)
[2018-11-09] MEDS: Sulfamethoxazole/Trimeth DS 1 EACH TABLET PO SCH ×2 (08:15→20:22)
[2018-11-09] MEDS: Finasteride 5 MG TABLET PO SCH (08:15)
[2018-11-09] MEDS: Lactobacillus 1 EACH CAP.SPRINK PO SCH ×2 (08:15→20:22)
[2018-11-09] MEDS: *HR* Metformin 500 MG TABLET PO SCH (18:07)
[2018-11-10] MEDS: Ascorbic Acid 500 MG TABLET PO SCH (03:47)
[2018-11-10] MEDS: Finasteride 5 MG TABLET PO SCH (08:41)
[2018-11-10] MEDS: Sulfamethoxazole/Trimeth DS 1 EACH TABLET PO SCH ×2 (08:41→19:43)
[2018-11-10] MEDS: Lactobacillus 1 EACH CAP.SPRINK PO SCH ×2 (08:41→19:43)
[2018-11-10] MEDS: traMADol 50 MG TABLET PO PRN (11:17)
[2018-11-10] MEDS: *HR* Metformin 500 MG TABLET PO SCH (17:25)
[2018-11-10] MEDS: Gentamicin Oint 15 GM TUBE TP SCH (22:55)
[2018-11-11] MEDS: Ascorbic Acid 500 MG TABLET PO SCH (06:36)
[2018-11-11] MEDS: *HR* Enoxaparin 40 MG/0.4 ML SYRINGE SQ SCH (06:36)
[2018-11-11] MEDS: Sulfamethoxazole/Trimeth DS 1 EACH TABLET PO SCH ×2 (10:30→19:47)
[2018-11-11] MEDS: Finasteride 5 MG TABLET PO SCH (10:30)
[2018-11-11] MEDS: Lactobacillus 1 EACH CAP.SPRINK PO SCH ×2 (10:30→19:47)
[2018-11-11] MEDS: Gentamicin Oint 15 GM TUBE TP SCH (13:00)
--- NOTE | 2018-11-11 17:10 | Internal Med Progress Note ---
Date of Encounter: 11/11/18 Time of Encounter: 17:00 - Assessment and plan (1) Multiple falls Current Visit: No Status: Acute Assessment and plan: November 08. Continue PT/OT intervention. (2) Osteomyelitis Current Visit: No Status: Chronic Assessment and plan: November 08. He has been started on Septra DS for possible osteomyelitis of the right foot. He will follow with podiatry in 2-3 days for further evaluation and development of plan of care. November 11. Dr. Machado does not feel osteomyelitis is present in the right foot. No further workup or Rx will be done at this time. Qualifiers: Osteomyelitis type: unspecified type Osteomyelitis location: foot L aterality: right Qualified Code(s): M86.9 - Osteomyelitis, unspecified (3) Hypertension Current Visit: No Status: Chronic Assessment and plan: November 08. Continue Lopressor. Qualifiers: Hypertension type: essential hypertension Qualified Code(s): I10 - Essential (primary) hypertension (4) Humeral fracture Current Visit: No Status: Acute Assessment and plan: November 08. Continue PT/OT intervention. Follow-up with orthopedist as directed. November 11. He states follow-up with the orthopedist is 11/21/2018. Qualifiers: Encounter type: subsequent encounter Humerus Location: distal Fracture type: closed Fracture morphology: unspecified fracture morphology Laterality: left Fracture healing: with delayed healing Qualified Code(s): S42.402G - Unspecified fracture of lower end of left humerus, subsequent encounter for fracture with delayed healing (5) Diabetes Current Visit: No Status: Chronic Assessment and plan: November 08. Hemoglobin A1c 5.6%. Remain off Amaryl and Januvia. Metformin will also be held due to complaints of nausea. November 11. Blood sugars acceptable. Remain off diabetic medications. 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 He was hospitalized in [facility] acute-care November 04- after presenting with 5-6 day history of diarrhea. Diarrhea resolved during acute care stay. Etiology was not determined. He had PT/OT evaluations with ongoing intervention. It was felt he would benefit from swing bed stay for continuing therapy prior to returning to independent living. He complains of some nausea at present time but has no other complaints. November 11. He has no new complaints. He saw Dr. Machado yesterday and was told he did not have infection/osteomyelitis of his foot. Antibiotics have been discontinued. A follow-up visit is scheduled in approximately [address] Machado. He states diarrhea has resolved. He confirms he feels he would benefit from ongoing therapy at SNF for several weeks prior to returning to independent living at home. - Constitutional Vitals: Temp Pulse Resp BP Pulse Ox 97.6 F 75 18 142/91 97 11/11/18 07:18 11/11/18 07:18 11/11/18 07:18 11/11/18 07:18 11/11/18 07:18 Exam: He is resting comfortably in bed and appears in no acute distress. His affect is bright and cheerful. I reviewed his medications and lab results. Internal Medicine: Result - Labs CBC & Chem 7: 11/08/18 07:11 11/08/18 07:11 - ABG Interpretation ABG results: PT/INR, D-dimer PT 13.2 Seconds (9.4-12.1) H 11/08/18 07:11 Consult Discharge Plan - Plan Referrals: Latosha Devlin, RAYA [Primary Care Provider] - 1 week
[2018-11-11] MEDS: *HR* Metformin 500 MG TABLET PO SCH (17:42)
[2018-11-12] MEDS: Ascorbic Acid 500 MG TABLET PO SCH (06:04)
[2018-11-12] MEDS: *HR* Enoxaparin 40 MG/0.4 ML SYRINGE SQ SCH (06:04)
[2018-11-12] MEDS: Finasteride 5 MG TABLET PO SCH (10:14)
[2018-11-12] MEDS: Sulfamethoxazole/Trimeth DS 1 EACH TABLET PO SCH ×2 (10:14→20:07)
[2018-11-12] MEDS: Lactobacillus 1 EACH CAP.SPRINK PO SCH ×2 (10:14→20:07)
[2018-11-12] MEDS: Gentamicin Oint 15 GM TUBE TP SCH (16:39)
[2018-11-12] MEDS: *HR* Metformin 500 MG TABLET PO SCH (17:34)
[2018-11-12] MEDS: traMADol 50 MG TABLET PO PRN (20:07)
[2018-11-13] MEDS: Ascorbic Acid 500 MG TABLET PO SCH (04:57)
[2018-11-13] MEDS: *HR* Enoxaparin 40 MG/0.4 ML SYRINGE SQ SCH (04:57)
[2018-11-13] MEDS: Finasteride 5 MG TABLET PO SCH (10:23)
[2018-11-13] MEDS: Lactobacillus 1 EACH CAP.SPRINK PO SCH ×2 (10:23→21:46)
[2018-11-13] MEDS: Sulfamethoxazole/Trimeth DS 1 EACH TABLET PO SCH ×2 (10:23→21:46)
--- NOTE | 2018-11-13 15:10 | Internal Med Progress Note ---
Date of Encounter: 11/13/18 Time of Encounter: 15:00 - Assessment and plan (1) Multiple falls Current Visit: No Status: Acute Assessment and plan: November 08. Continue PT/OT intervention. (2) Osteomyelitis Current Visit: No Status: Chronic Assessment and plan: November 08. He has been started on Septra DS for possible osteomyelitis of the right foot. He will follow with podiatry in 2-3 days for further evaluation and development of plan of care. November 11. Dr. Machado does not feel osteomyelitis is present in the right foot. No further workup or Rx will be done at this time. Qualifiers: Osteomyelitis type: unspecified type Osteomyelitis location: foot L aterality: right Qualified Code(s): M86.9 - Osteomyelitis, unspecified (3) Hypertension Current Visit: No Status: Chronic Assessment and plan: November 08. Continue Lopressor. Qualifiers: Hypertension type: essential hypertension Qualified Code(s): I10 - Essential (primary) hypertension (4) Humeral fracture Current Visit: No Status: Acute Assessment and plan: November 08. Continue PT/OT intervention. Follow-up with orthopedist as directed. November 11. He states follow-up with the orthopedist is 11/21/2018. Qualifiers: Encounter type: subsequent encounter Humerus Location: distal Fracture type: closed Fracture morphology: unspecified fracture morphology Laterality: left Fracture healing: with delayed healing Qualified Code(s): S42.402G - Unspecified fracture of lower end of left humerus, subsequent encounter for fracture with delayed healing (5) Diabetes Current Visit: No Status: Chronic Assessment and plan: November 08. Hemoglobin A1c 5.6%. Remain off Amaryl and Januvia. Metformin will also be held due to complaints of nausea. November 11. Blood sugars acceptable. Remain off diabetic medications. 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 He was hospitalized in [facility] acute-care November 04- after presenting with 5-6 day history of diarrhea. Diarrhea resolved during acute care stay. Etiology was not determined. He had PT/OT evaluations with ongoing intervention. It was felt he would benefit from swing bed stay for continuing therapy prior to returning to independent living. He complains of some nausea at present time but has no other complaints. November 11. He has no new complaints. He saw Dr. Machado yesterday and was told he did not have infection/osteomyelitis of his foot. Antibiotics have been discontinued. A follow-up visit is scheduled in approximately [address] Machado. He states diarrhea has resolved. He confirms he feels he would benefit from ongoing therapy at SNF for several weeks prior to returning to independent living at home. November 13. He has no new complaints. Reports minimal pain in his right foot. He states his left arm only hurts when he moves it. - Constitutional Vitals: Temp Pulse Resp BP Pulse Ox 98.3 F 74 16 141/88 99 11/13/18 07:30 11/13/18 07:30 11/13/18 07:30 11/13/18 07:30 11/13/18 07:30 Exam: He is resting comfortably in bed and appears in no acute distress. His affect is bright and cheerful. I reviewed his medications and lab results. Internal Medicine: Result - Labs CBC & Chem 7: 11/08/18 07:11 11/08/18 07:11 - ABG Interpretation ABG results: PT/INR, D-dimer PT 13.2 Seconds (9.4-12.1) H 11/08/18 07:11 Consult Discharge Plan - Plan Referrals: Latosha Devlin CNP [Primary Care Provider] - 1 week
[2018-11-13] MEDS: *HR* Metformin 500 MG TABLET PO SCH (17:32)
[2018-11-13] MEDS: Gentamicin Oint 15 GM TUBE TP SCH (18:48)
[2018-11-14] MEDS: Ascorbic Acid 500 MG TABLET PO SCH (05:23)
[2018-11-14] MEDS: *HR* Enoxaparin 40 MG/0.4 ML SYRINGE SQ SCH (05:23)
[2018-11-14] MEDS: Lactobacillus 1 EACH CAP.SPRINK PO SCH ×2 (10:51→22:13)
[2018-11-14] MEDS: Sulfamethoxazole/Trimeth DS 1 EACH TABLET PO SCH ×2 (10:51→22:13)
[2018-11-14] MEDS: Finasteride 5 MG TABLET PO SCH (10:51)
[2018-11-14] MEDS: Gentamicin Oint 15 GM TUBE TP SCH (10:52)
[2018-11-14] MEDS: *HR* Metformin 500 MG TABLET PO SCH (17:30)
[2018-11-15] MEDS: *HR* Enoxaparin 40 MG/0.4 ML SYRINGE SQ SCH (05:11)
[2018-11-15] MEDS: Ascorbic Acid 500 MG TABLET PO SCH (05:11)
[2018-11-15] MEDS: Finasteride 5 MG TABLET PO SCH (09:18)
[2018-11-15] MEDS: Lactobacillus 1 EACH CAP.SPRINK PO SCH ×2 (09:18→21:45)
[2018-11-15] MEDS: Sulfamethoxazole/Trimeth DS 1 EACH TABLET PO SCH ×2 (09:18→21:46)
[2018-11-15] MEDS: Gentamicin Oint 15 GM TUBE TP SCH (15:17)
[2018-11-15] MEDS: *HR* Metformin 500 MG TABLET PO SCH (17:36)
[2018-11-16] MEDS: *HR* Enoxaparin 40 MG/0.4 ML SYRINGE SQ SCH (06:39)
[2018-11-16] MEDS: Ascorbic Acid 500 MG TABLET PO SCH (06:40)
[2018-11-16] MEDS: Finasteride 5 MG TABLET PO SCH (08:43)
[2018-11-16] MEDS: Lactobacillus 1 EACH CAP.SPRINK PO SCH ×2 (08:43→21:05)
[2018-11-16] MEDS: Sulfamethoxazole/Trimeth DS 1 EACH TABLET PO SCH ×2 (08:43→21:05)
[2018-11-16] MEDS: Gentamicin Oint 15 GM TUBE TP SCH (12:30)
--- NOTE | 2018-11-16 15:13 | Internal Med Progress Note ---
Date of Encounter: 11/16/18 Time of Encounter: 15:05 - Assessment and plan (1) Multiple falls Current Visit: No Status: Acute Assessment and plan: November 08. Continue PT/OT intervention. November 16. Anticipate discharge home tomorrow. (2) Osteomyelitis Current Visit: No Status: Chronic Assessment and plan: November 08. He has been started on Septra DS for possible osteomyelitis of the right foot. He will follow with podiatry in 2-3 days for further evaluation and development of plan of care. November 11. Dr. Machado does not feel osteomyelitis is present in the right foot. No further workup or Rx will be done at this time. Qualifiers: Osteomyelitis type: unspecified type Osteomyelitis location: foot Laterality: right Qualified Code(s): M86.9 - Osteomyelitis, unspecified (3) Hypertension Current Visit: No Status: Chronic Assessment and plan: November 08. Continue Lopressor. Qualifiers: Hypertension type: essential hypertension Qualified Code(s): I10 - Es sential (primary) hypertension (4) Humeral fracture Current Visit: No Status: Acute Assessment and plan: November 08. Continue PT/OT intervention. Follow-up with orthopedist as directed. November 11. He states follow-up with the orthopedist is 11/21/2018. Qualifiers: Encounter type: subsequent encounter Humerus Location: distal Fracture type: closed Fracture morphology: unspecified fracture morphology Laterality: left Fracture healing: with delayed healing Qualified Code(s): S42.402G - Unspecified fracture of lower end of left humerus, subsequent encounter for fracture with delayed healing (5) Diabetes Current Visit: No Status: Chronic Assessment and plan: November 08. Hemoglobin A1c 5.6%. Remain off Amaryl and Januvia. Metformin will also be held due to complaints of nausea. November 11. Blood sugars acceptable. Remain off diabetic medications. Qualifiers: Diabetes mellitus type: type 2 Diabetes mellitus alf insulin use: without alf use Diabetes mellitus complication status: without complication Qualified Code(s): E11.9 - Type 2 diabetes mellitus without complications - Subjective Interval history: November 08. He was hospitalized in [facility] acute-care November 04- after presenting with 5-6 day history of diarrhea. Diarrhea resolved during acute care stay. Etiology was not determined. He had PT/OT evaluations with ongoing in tervention. It was felt he would benefit from swing bed stay for continuing therapy prior to returning to independent living. He complains of some nausea at present time but has no other complaints. November 11. He has no new complaints. He saw Dr. Machado yesterday and was told he did not have infection/osteomyelitis of his foot. Antibiotics have been discontinued. A follow-up visit is scheduled in approximately [address] Machado. He states diarrhea has resolved. He confirms he feels he would benefit from ongoing therapy at SNF for several weeks prior to returning to independent living at home. November 13. He has no new complaints. Reports minimal pain in his right foot. He states his left arm only hurts when he moves it. November 16. He has no new complaints. - Constitutional Vitals: Temp Pulse Resp BP Pulse Ox 98.1 F 77 14 160/88 95 11/16/18 07:11 11/16/18 07:11 11/16/18 07:11 11/16/18 07:11 11/16/18 07:11 Exam: He is resting comfortably in bed and appears in no acute distress. His affect is bright and cheerful. There is no pain over the first MTP joints. There is no extremity edema. His affect is bright and cheerful. I reviewed his medications and past lab results. Internal Medicine: Result - Labs CBC & Chem 7: 11/08/18 07:11 11/08/18 07:11 - ABG Interpretation ABG results: PT/INR, D-dimer PT 13.2 Seconds (9.4-12.1) H 11/08/18 07:11 Consult Discharge Plan - Plan Referrals: Latosha Devlin, RAYA [Primary Care Provider] - 1 week
[2018-11-17] MEDS: Ascorbic Acid 500 MG TABLET PO SCH (06:40)
[2018-11-17] MEDS: *HR* Enoxaparin 40 MG/0.4 ML SYRINGE SQ SCH (06:40)
[2018-11-17 07:29] VITALS: BP 140/86
[2018-11-17] MEDS: Lactobacillus 1 EACH CAP.SPRINK PO SCH (08:23)
[2018-11-17] MEDS: Finasteride 5 MG TABLET PO SCH (08:24)
[2018-11-17] MEDS: Sulfamethoxazole/Trimeth DS 1 EACH TABLET PO SCH (08:24)
--- NOTE | 2018-11-17 09:57 | Discharge Summary ---
Date of Encounter: 11/17/18 Time of Encounter: 09:47 - Discharge Diagnosis (1) Multiple falls Priority: Primary Status: Acute (2) Hypertension Priority: Secondary Status: Chronic Qualifiers: Hypertension type: essential hypertension Qualified Code(s): I10 - Essential (primary) hypertension (3) Humeral fracture Priority: Secondary Status: Chronic Qualifiers: Encounter type: subsequent encounter Humerus Location: distal Fracture type: closed Fracture morphology: unspecified fracture morphology Laterality: left Fracture healing: with delayed healing Qualified Code(s): S42.402G - Unspecified fracture of lower end of left humerus, subsequent encounter for fracture with delayed healing (4) Diabetes Priority: Secondary Status: Chronic Qualifiers: Diabetes mellitus type: type 2 Diabetes mellitus bed bug exterminator insulin use: without skilled nursing use Diabetes mellitus complication status: without complication Qualified Code(s): E11.9 - Type 2 diabetes mellitus without complications (5) Microcytic anemia Priority: Secondary Status: Acute Hospital course: Mr. Salomon is a 53 year old male who was hospitalized in [facility] acute-care November 04- after presenting with 5-6 day history of diarrhea. Diarrhea resolved during acute care stay. Etiology was not determined. He had PT/OT evaluations with ongoing intervention. It was felt he would benefit from swing bed stay for continuing therapy prior to returning to independent living. He progressed well in therapy without further falls. Home health services will be ordered at discharge for ongoing intervention. He saw Dr. Machado who did not feel osteomyelitis was present in the right foot. He will follow up with Dr. Machado in approximately 2 weeks for reassessment. Blood pressure remained well controlled on metoprolol. He will be prescribed Toprol-XL at discharge. He will follow up with the orthopedist for left humerus fracture 11/21/2018. Blood sugars remained acceptable off diabetic medications. He will continue to monitor blood sugars at home. He was stable for discharge home 11/17/2018. He will follow with his PCP Latosha Devlin CNP within 1 week. - Time Spent with Patient Total time spent providing and/or coordinating discharge services: - Discharge Medications Prescriptions: New Metoprolol XL (24 HR) Succ [Toprol XL] 50 mg PO DAILY #30 tab.er.24h Continued Finasteride [Proscar] 5 mg PO DAILY Tramadol HCl [Ultram] 50 mg PO TID PRN PRN Reason: Pain Tamsulosin [Flomax] 0.4 mg PO DAILY Ferrous Sulfate 325 mg PO 0630 #30 tablet Ascorbic Acid [Vitamin C] 500 mg PO 0630 #30 tablet Discontinued SitaGLIPtin [Januvia] 25 mg PO DAILY Metoprolol [Lopressor] 25 mg PO BID #1 tablet metFORMIN [Glucophage] 1,000 mg PO QPM tablet Insulin LISPRO [HumaLOG] 0 units SQ TIDAC vial Enoxaparin [Lovenox] 40 mg SQ 0600 syringe Dextrose 50 % in Water (Syg) [Dextrose 50% (Syg)] 25 ml IVP AD PRN syringe PRN Reason: Hypoglycemia Dextrose Gel [Gluctose] 30 gm PO ONCE PRN tube PRN Reason: Hypoglycemia Dextrose Gel [Gluctose] 15 gm PO ONCE PRN tube PRN Reason: Hypoglycemia Sulfamethoxazole/Trimeth DS [Bactrim DS] 1 each PO BID 4 Days tablet Lactobacillus [Culturelle] 1 each PO BID 4 Days cap.sprink Home Medications: Finasteride [Proscar] 5 mg PO DAILY 10/17/18 [History] Tamsulosin [Flomax] 0.4 mg PO DAILY 10/17/18 [History] Tramadol HCl [Ultram] 50 mg PO TID PRN 10/17/18 [History] Ascorbic Acid [Vitamin C] 500 mg PO 0630 #30 tablet 11/17/18 [Rx] Ferrous Sulfate 325 mg PO 0630 #30 tablet 11/17/18 [Rx] Metoprolol XL (24 HR) Succ [Toprol XL] 50 mg PO DAILY #30 tab.er.24h 11/17/18 [Rx] Allergies/Adverse Reactions: Allergy/AdvReac Type Severity Reaction Status Date / Time codeine Allergy Swelling Verified 09/01/18 11:11 of Lip/Tongue/Throat hydrocodone [From Vicodin] Allergy Swelling Verified 09/01/18 11:11 of Lip/Tongue/Throat oxycodone [From Percocet] Allergy Swelling Verified 09/01/18 11:11 of Lip/Tongue/Throat acetaminophen [From Tylenol] AdvReac See Verified 09/01/18 11:11 Comments Date of admission: 11/07/18 18:16 Primary care physician: Latosha Devlin Consults: 11/07/18 18:33 Consult to Occupational Therapy [CONS] Routine Comment: Evaluate, Develop and Implement plan of care Reason for Consult: Evaluaute, Develop and Implement plan of care Does patient have active BEDREST order?: No Is patient medically & hemodynamically stable?: Yes Patient assessed for mobility or mobilized this visit?: Yes Consult to Physical Therapy [CONS] Routine Comment: Evaluate,Develop and Implement Plan of Care Reason for Consult: Evaluate, Develop and Implement Plan of Care Does patient have active BEDREST order?: No Is patient medically & hemodynamically stable?: Yes Patient assessed for mobility or mobilized this visit?: Yes Consult to Recruiting [employer]ship [CONS] Routine Reason for SW Consult: Discharge planning. - Constitutional Vitals: Temp Pulse Resp BP Pulse Ox 98.0 F 81 18 140/86 95 11/17/18 07:29 11/17/18 07:29 11/17/18 07:29 11/17/18 07:29 11/17/18 07:29 - Patient Status Disposition: Home Health Service - Discharge Instructions Follow Up With: Latosha Devlin CNP [Primary Care Provider] - 1 week - Diet and Activity Activity: as per physical therapy Diet: diabetic diet
--- NOTE | 2018-11-17 11:22 | Physician Discharge Referral ---
Home Health/Hosp Referral Info Transfer to: Home Health Attending Provider: Yo Provider in Charge Post Discharge: PCP Mike) - Diagnosis (1) Multiple falls Priority: Primary Status: Acute (2) Hypertension Priority: Secondary Status: Chronic (3) Humeral fracture Priority: Secondary Status: Chronic (4) Diabetes Priority: Secondary Status: Chronic (5) Microcytic anemia Priority: Secondary Status: Acute - Respiratory Orders Smoking Cessation: Smoking cessation has been advised. For more information, call the [place] Tobacco Quit Line at 4-732-MABG-NOW. - Diet/Nutrition Diet/Nutrition Orders: No Concentrated Sweets - Activity Activity Orders: Walker - Services Needed Following services are medically necessary services: Nursing, Home Health Aide, Physical Therapy, Occupational Therapy - Transfer Medications Prescriptions: Ferrous Sulfate 325 mg PO 0630 #30 tablet Metoprolol XL (24 HR) Succ [Toprol XL] 50 mg PO DAILY #30 tab.er.24h Ascorbic Acid [Vitamin C] 500 mg PO 0630 #30 tablet Home Medications: Finasteride [Proscar] 5 mg PO DAILY 10/17/18 [History] Tamsulosin [Flomax] 0.4 mg PO DAILY 10/17/18 [History] Tramadol HCl [Ultram] 50 mg PO TID PRN 10/17/18 [History] Ascorbic Acid [Vitamin C] 500 mg PO 0630 #30 tablet 11/17/18 [Rx] Ferrous Sulfate 325 mg PO 0630 #30 tablet 11/17/18 [Rx] Metoprolol XL (24 HR) Succ [Toprol XL] 50 mg PO DAILY #30 tab.er.24h 11/17/18 [Rx] Allergies/Adverse Reactions: Allergy/AdvReac Type Severity Reaction Status Date / Time codeine Allergy Swelling Verified 09/01/18 11:11 of Lip/Tongue/Throat hydrocodone [From Vicodin] Allergy Swelling Verified 09/01/18 11:11 of Lip/Tongue/Throat oxycodone [From Percocet] Allergy Swelling Verified 09/01/18 11:11 of Lip/Tongue/Throat acetaminophen [From Tylenol] AdvReac See Verified 09/01/18 11:11 Comments Certification: Further, I certify that my clinical findings support that this patient is homebound (i.e. absences from home require considerable and taxing effort and are for medical reasons or congregation services or infrequently or short duration when for other reasons) because: Homebound Reason: Leaving home requires considerable and taxing effort due to condition (Impaired walking ability with multiple falls. Left humerus fracture) Attestation: My signature below is to certify that this patient is under my care and that I, or nurse practitioner, or a physician's assistant paralegal working with me, has a [id number] encounter with this patient.
== END 2018-11-17 16:51 | disposition home health service (06) | DRG 392 ==
LOC: INPPIK 18:16
PROVIDERS: ADMIT Internal Medicine; ATTEND Internal Medicine

== ENCOUNTER 2021-08-23 12:29 | Observation (INO) ==
[2021-08-23] MEDS ORDERED: Moderna Covid-19 Vaccine 100MCG/0.5mL IM ONE (15:04)
[2021-08-23 17:36] LABS: Basophils # 0.1 K/mcL (0.0-0.2); Basophils % 0.7 %; Eosinophils # 0.4 K/mcL (0.0-0.6); Eosinophils % 3.4 %; Hematocrit 42.6 % (37.5-50.1); Hemoglobin 13.8 g/dL (12.9-16.9); Immature Granulocytes % 0.4 % (0-4); Lymphocytes # 2.3 K/mcL (0.6-4.6); Lymphocytes % 21.6 %; Mean Corpuscular HGB Conc 32.4 g/dL (31.6-35.5); Mean Corpuscular Hemoglobin 28.3 pg (28.0-33.3); Mean Corpuscular Volume 87.3 fL (83.0-100.0); Monocytes # 0.9 K/mcL (0.0-1.3); Monocytes % 8.1 %; Neutrophils # 7.1 K/mcL (1.6-8.9); Platelet Count 165 K/mcL (140-400); Red Blood Count 4.88 M/mcL (4.19-5.50); Red Cell Distribution Width 13.8 % (11.5-14.5); Segmented Neutrophils % 65.8 %; White Blood Count 10.8 K/mcL (4.3-11.1)
[2021-08-23 17:55] LABS: Calcium 8.8 mg/dL (8.6-10.3); Potassium 3.9 mEq/L (3.5-5.1)
[2021-08-23] MEDS ORDERED: Naloxone 0.4 MG/ML INJ IVP PRN (21:23)
[2021-08-23] MEDS ORDERED: hydrALAZINE 25 MG TABLET PO ONE (21:23)
[2021-08-23] MEDS ORDERED: 0.9 % Sodium Chloride 1,000 ML IVC SCH (21:30)
[2021-08-24] MEDS: hydrALAZINE 25 MG TABLET PO SCH ×4 (00:25→17:07)
[2021-08-24] MEDS ORDERED: Dextrose Gel 15 GM/37.5 ML TUBE PO PRN ×2 (09:39)
[2021-08-24] MEDS ORDERED: D5% in Water 1,000 ML IVC PRN (09:39)
[2021-08-24] MEDS ORDERED: *HR* Dextrose 50 % in Water (Syg) 50 ML SYRINGE IVP PRN (09:39)
[2021-08-24] MEDS: Metoprolol XL (24 HR) Succ 50 MG TAB.ER.24H PO SCH (10:31)
[2021-08-24] MEDS: *HR* Glimepiride 2 MG TABLET PO SCH (10:31)
[2021-08-24] MEDS: Cholecalciferol (D-3) 1,000 UNIT (25MCG) TABLET PO SCH (10:31)
[2021-08-24] MEDS: Finasteride 5 MG TABLET PO SCH (10:31)
[2021-08-24] MEDS: Neosporin OINT 15 GM TUBE TP SCH ×2 (10:31→21:53)
[2021-08-24 11:38] LABS: Hematocrit 40.5 % (37.5-50.1); Mean Corpuscular HGB Conc 32.1 g/dL (31.6-35.5); Mean Corpuscular Hemoglobin 28.1 pg (28.0-33.3); Mean Corpuscular Volume 87.7 fL (83.0-100.0); Mean Platelet Volume 11.5 fL (9.4-12.4); Platelet Count 147 K/mcL (140-400); Red Blood Count 4.62 M/mcL (4.19-5.50); White Blood Count 9.7 K/mcL (4.3-11.1)
[2021-08-24 11:50] LABS: Calcium 8.4 mg/dL (8.6-10.3); Potassium 3.9 mEq/L (3.5-5.1)
[2021-08-24] MEDS: Insulin LISPRO 300 UNITS/3 ML VIAL SUBQ SCH ×3 (12:33→21:41)
[2021-08-24 16:22] LABS: Bilirubin,Urine Negative (Negative); Blood,Urine Trace-lysed (Negative); Clarity,Urine Clear (Clear); Color,Urine Yellow (Yellow); Glucose,Urine (UA) 100 mg/dL (Normal); Ketones,Urine Negative (Negative); Leukocyte Esterase,Urine Negative (Negative); Nitrite,Urine Negative (Negative); Protein,Urine >=300 mg/dL (Neg-Trace); Specific Gravity,Urine >= 1.030 (1.010-1.025); Urobilinogen,Urine Normal (Normal)
[2021-08-24 16:37] LABS: Granular Casts,Urine Few per lpf (None Seen); Mucus,Urine Few per lpf (None-Few); Squamous Epithelial Cell,Urine Few per hpf (None-Few)
[2021-08-24] MEDS: 0.9 % Sodium Chloride 1,000 ML IVC SCH (17:06)
[2021-08-25] MEDS: hydrALAZINE 25 MG TABLET PO SCH ×5 (00:09→23:30)
[2021-08-25] MEDS: 0.9 % Sodium Chloride 1,000 ML IVC SCH ×2 (03:50→16:39)
[2021-08-25] MEDS: *HR* Enoxaparin 40 MG/0.4 ML SYRINGE SQ SCH (05:30)
[2021-08-25] MEDS: Insulin LISPRO 300 UNITS/3 ML VIAL SUBQ SCH ×4 (07:54→23:15)
[2021-08-25 08:01] LABS: Basophils # 0.1 K/mcL (0.0-0.2); Basophils % 0.8 %; Eosinophils # 0.3 K/mcL (0.0-0.6); Eosinophils % 3.2 %; Hematocrit 37.9 % (37.5-50.1); Hemoglobin 12.1 g/dL (12.9-16.9); Immature Granulocytes % 0.3 % (0-4); Lymphocytes # 2.3 K/mcL (0.6-4.6); Mean Corpuscular HGB Conc 31.9 g/dL (31.6-35.5); Mean Corpuscular Hemoglobin 27.7 pg (28.0-33.3); Mean Corpuscular Volume 86.7 fL (83.0-100.0); Mean Platelet Volume 11.6 fL (9.4-12.4); Monocytes # 0.9 K/mcL (0.0-1.3); Neutrophils # 6.2 K/mcL (1.6-8.9); Platelet Count 126 K/mcL (140-400); Red Blood Count 4.37 M/mcL (4.19-5.50); Segmented Neutrophils % 63.7 %; White Blood Count 9.8 K/mcL (4.3-11.1)
[2021-08-25 08:10] LABS: BUN/Creatinine Ratio 20 (6-26); Blood Urea Nitrogen 28 mg/dL (6-20); Carbon Dioxide 26 mEq/L (23-29); Chloride 110 mEq/L (98-107); Glucose 86 mg/dL (70-105); Osmolality,Calculated 297 (280-300); Potassium 3.6 mEq/L (3.5-5.1); Sodium 141 mEq/L (136-145); eGFR For African Americans > 60 (> 60); eGFR For Non-African Americans 51 (> 60)
[2021-08-25] MEDS: Metoprolol XL (24 HR) Succ 50 MG TAB.ER.24H PO SCH (08:55)
[2021-08-25] MEDS: *HR* Glimepiride 2 MG TABLET PO SCH (08:55)
[2021-08-25] MEDS: Finasteride 5 MG TABLET PO SCH (08:55)
[2021-08-25] MEDS: Cholecalciferol (D-3) 1,000 UNIT (25MCG) TABLET PO SCH (08:55)
[2021-08-25] MEDS: Neosporin OINT 15 GM TUBE TP SCH ×2 (08:56→23:28)
[2021-08-25 21:23] LABS: Influenza A PCR Negative (Negative); Influenza B PCR Negative (Negative); Resp. Syncytial Virus PCR Negative (Negative); SARS-CoV-2 by PCR (In House) Negative (Negative)
[2021-08-25] MEDS: cefTRIAXone 1,000 MG in 0.9 % Sodium Chloride 10 ML IVP SCH (23:25)
[2021-08-25 23:44] VITALS: TEMP 98.2
[2021-08-26] MEDS: hydrALAZINE 25 MG TABLET PO SCH (05:16)
[2021-08-26] MEDS: *HR* Enoxaparin 40 MG/0.4 ML SYRINGE SQ SCH (05:16)
[2021-08-26] MEDS: 0.9 % Sodium Chloride 1,000 ML IVC SCH (05:17)
[2021-08-26 07:09] VITALS: BP 148/87; PULSE 77; RESP 19; O2SAT 92
[2021-08-26 07:41] LABS: Hematocrit 37.8 % (37.5-50.1); Hemoglobin 11.9 g/dL (12.9-16.9); Mean Corpuscular HGB Conc 31.5 g/dL (31.6-35.5); Mean Corpuscular Hemoglobin 27.5 pg (28.0-33.3); Mean Corpuscular Volume 87.3 fL (83.0-100.0); Mean Platelet Volume 11.7 fL (9.4-12.4); Platelet Count 132 K/mcL (140-400); Red Blood Count 4.33 M/mcL (4.19-5.50); Red Cell Distribution Width 14.2 % (11.5-14.5); White Blood Count 7.8 K/mcL (4.3-11.1)
[2021-08-26] MEDS: Insulin LISPRO 300 UNITS/3 ML VIAL SUBQ SCH (07:45)
[2021-08-26 07:55] LABS: BUN/Creatinine Ratio 16 (6-26); Blood Urea Nitrogen 21 mg/dL (6-20); Calcium 7.9 mg/dL (8.6-10.3); Carbon Dioxide 25 mEq/L (23-29); Chloride 111 mEq/L (98-107); Glucose 86 mg/dL (70-105); Magnesium 1.8 mg/dL (1.6-2.6); Osmolality,Calculated 296 (280-300); Potassium 3.7 mEq/L (3.5-5.1); Sodium 142 mEq/L (136-145); eGFR For African Americans > 60 (> 60); eGFR For Non-African Americans 58 (> 60)
[2021-08-26] MEDS: cefTRIAXone 1,000 MG in 0.9 % Sodium Chloride 10 ML IVP SCH (08:13)
[2021-08-26] MEDS: Finasteride 5 MG TABLET PO SCH (08:14)
[2021-08-26] MEDS: *HR* Glimepiride 2 MG TABLET PO SCH (08:14)
[2021-08-26] MEDS: Cholecalciferol (D-3) 1,000 UNIT (25MCG) TABLET PO SCH (08:14)
[2021-08-26] MEDS: Metoprolol XL (24 HR) Succ 50 MG TAB.ER.24H PO SCH (08:14)
[2021-08-26] MEDS: Neosporin OINT 15 GM TUBE TP SCH (08:14)
== END 2021-08-26 08:57 ==
LOC: EMEROOPIK 12:29 → INPPIK 12:29
PROVIDERS: ADMIT Internal Medicine; ATTEND Internal Medicine